=== PATIENT | female | born 1945 | race Hispanic/Latino ===

== ENCOUNTER → 2018-02-24 | Outpatient (CLI) | payer OTHER ==
[~2018-02-24] MED LIST: ASPI-1197 PO; BENA5TAB3 PO; CARB15DR OD; CARV25TA PO; GLIP5TAB11 PO; PANT40TA25 PO; PRAV40TA3 PO; SIMV40TA5 PO; SPIR25TA4 PO
== END | disposition home or self-care (01) ==
LOC: SHCH 08:33
PROVIDERS: ATTEND Internal Medicine Cardiovascular Disease
DX: I08.1 Rheumatic disorders of both mitral and tricuspid valves (principal); I31.3 Pericardial effusion (noninflammatory); I13.0 Hypertensive heart and chronic kidney disease with heart failure and stage 1 through stage 4 chronic kidney disease, or unspecified chronic kidney disease; I50.9 Heart failure, unspecified; E11.22 Type 2 diabetes mellitus with diabetic chronic kidney disease; N18.3 Chronic kidney disease, stage 3 (moderate)
CPT/HCPCS: 93306

== ENCOUNTER 2018-03-13 13:37 | Emergency (ER) | payer OTHER ==
[~2018-03-13 13:37] MED LIST changes: -BENA5TAB3 PO; +BENA5TAB6 PO; -SIMV40TA5 PO; -SPIR25TA4 PO
[2018-03-13 14:37] LABS: BASOPHILS % (AUTO) 0.7 % (0.0-5.0); EOSINOPHILS % (AUTO) 6.3 % (0.0-8.0); HEMATOCRIT 40.9 % (36-48); LYMPHOCYTES % (AUTO) 14.3 % (21.0-51.0); MEAN CORPUSCULAR HEMOGLOBIN 29.2 pg (27.0-33.0); MEAN CORPUSCULAR VOLUME 83.5 fL (79-99); MONOCYTES % (AUTO) 5.7 % (3.0-13.0); PLATELET COUNT (AUTO) 262 K/uL (130-400); RED CELL DISTRIBUTION WIDTH 13.1 % (11.0-15.5)
[2018-03-13 14:48] LABS: INR 0.99 (0.85-1.15); PARTIAL THROMBOPLASTIN TIME 25.5 SEC (26.3-35.5); PROTHROMBIN TIME 10.4 SEC (9.6-11.6)
[2018-03-13 14:49] LABS: CREATININE 1.4 mg/dL (0.5-1.5); POTASSIUM 4.6 mmol/L (3.5-5.1)
[2018-03-13 14:54] LABS: APPEARANCE,URINE Clear (CLEAR); BILIRUBIN,URINE Negative (NEGATIVE); COLOR,URINE Yellow (YELLOW); GLUCOSE, URINE (UA) Negative (NEGATIVE); KETONES,URINE Negative (NEGATIVE); LEUKOCYTE ESTERASE ,URINE Negative (NEGATIVE); NITRATE,URINE Negative (NEGATIVE); OCCULT BLOOD,URINE Negative (NEGATIVE); PH,URINE 6.5 (5.0-8.0); PROTEIN,URINE Negative (NEGATIVE); UROBILINOGEN,URINE 0.2 mg/dL (0.2-1.0)
[2018-03-13 15:02] LABS: ALBUMIN 4.1 g/dL (3.5-5.0); BILIRUBIN,TOTAL 0.6 mg/dL (0.2-1.0); CREATINE KINASE MB 1.4 ng/mL (0.5-3.6); TOTAL PROTEIN, SERUM 8.4 g/dL (6.0-8.3)
[2018-03-13 15:05] LABS: B-TYPE NATRIURETIC PEPTIDE 175 pg/mL (0-100)
[2018-03-13] MEDS ORDERED: AZITHROMYCIN 250 MG TABLET PO ONE (15:20)
[2018-03-13] MEDS ORDERED: IPRATROPIUM/ALBUTEROL SULFATE 3 ML SOLUTION IH ONE (15:28)
[2018-04-07] MEDS ORDERED: SIMV40TA5 PO (13:50)
[2018-04-07] MEDS ORDERED: SPIR25TA6 PO (13:50)
== END 2018-03-13 16:20 | disposition home or self-care (01) ==
LOC: EDH 13:37
DX: J45.909 Unspecified asthma, uncomplicated (principal); E11.9 Type 2 diabetes mellitus without complications; I11.0 Hypertensive heart disease with heart failure; I50.9 Heart failure, unspecified; Z95.0 Presence of cardiac pacemaker; Z88.1 Allergy status to other antibiotic agents; Z88.8 Allergy status to other drugs, medicaments and biological substances
CPT/HCPCS: 36415; 71045; 80053; 81003; 82553; 83880; 84484; 85025; 85610; 85730; 93005; 94640

== ENCOUNTER 2018-04-09 06:49 | Day surgery (SDC) | payer OTHER ==
[~2018-04-09] VITALS: Ht 157.5 cm; Wt 61.8 kg
[~2018-04-09 06:49] MED LIST changes: -CARB15DR OD; -PRAV40TA3 PO; +SIMV40TA5 PO; +SODIUM CHLORIDE 0.9% 1000ML 1,000 ML IV ONE; +SPIR25TA6 PO
[2018-04-09 07:07] VITALS: BP 109/58
[2018-04-09] MEDS ORDERED: PROPOFOL 10 MG/ML 20ML VIAL IV ONE (08:14)
[2018-04-09] MEDS ORDERED: PHENYLEPHRINE HCL 10 MG/ML 1ML VIAL IV ONE (08:22)
[2018-04-09 08:41] VITALS: BP 108/48
== END 2018-04-09 09:16 | disposition home or self-care (01) ==
LOC: ENDO 06:49 → DAH 06:49 → ENDO 09:16
PROVIDERS: ATTEND Internal Medicine
DX: D12.3 Benign neoplasm of transverse colon (principal); K63.5 Polyp of colon; D12.4 Benign neoplasm of descending colon; D12.5 Benign neoplasm of sigmoid colon; I25.10 Atherosclerotic heart disease of native coronary artery without angina pectoris; E11.9 Type 2 diabetes mellitus without complications; K29.50 Unspecified chronic gastritis without bleeding; K31.7 Polyp of stomach and duodenum; K57.30 Diverticulosis of large intestine without perforation or abscess without bleeding; K64.0 First degree hemorrhoids; K63.89 Other specified diseases of intestine; I11.0 Hypertensive heart disease with heart failure; I50.20 Unspecified systolic (congestive) heart failure; K21.9 Gastro-esophageal reflux disease without esophagitis; K22.70 Barrett's esophagus without dysplasia
CPT/HCPCS: 43239; 43251; 45380; 45385; 82948 ×2; 88305; 88312; 93005; A4606; J2370; J2704; J7030

== ENCOUNTER → 2019-02-18 | Outpatient (CLI) | payer OTHER ==
[~2019-02-18] MED LIST changes: -SODIUM CHLORIDE 0.9% 1000ML 1,000 ML IV ONE
== END | disposition home or self-care (01) ==
LOC: SHCH 13:14
PROVIDERS: ATTEND Internal Medicine Cardiovascular Disease
DX: I34.0 Nonrheumatic mitral (valve) insufficiency (principal); I31.3 Pericardial effusion (noninflammatory); I10 Essential (primary) hypertension
CPT/HCPCS: 93306

== ENCOUNTER → 2019-08-21 | Outpatient (CLI) | payer OTHER | END | disposition home or self-care (01) | LOC: RAH 15:20 | PROVIDERS: ATTEND Internal Medicine Cardiovascular Disease | DX: I34.0 Nonrheumatic mitral (valve) insufficiency (principal); R42 Dizziness and giddiness; W19.XXXD Unspecified fall, subsequent encounter | CPT/HCPCS: 70450 ==

== ENCOUNTER 2020-01-21 18:33 | Emergency (ER) | payer OTHER ==
[~2020-01-21 18:33] MED LIST changes: +SIMV-46 PO; -SIMV40TA5 PO
[2020-01-21] MEDS ORDERED: ASPIRIN 325MG EC TAB 325 MG TABLET.DR PO ONE (18:53)
[2020-01-21] MEDS ORDERED: ASPIRIN 325 MG TABLET ONE (19:15)
[2020-01-21] MEDS ORDERED: DIAZEPAM 5 MG TABLET ONE (19:16)
[2020-01-21 19:18] LABS: BASOPHILS % (AUTO) 0.6 % (0.0-5.0); EOSINOPHILS % (AUTO) 7.7 % (0.0-8.0); HEMATOCRIT 41.5 % (36-48); LYMPHOCYTES % (AUTO) 11.1 % (21.0-51.0); MEAN CORPUSCULAR HEMOGLOBIN 28.2 pg (27.0-33.0); MEAN CORPUSCULAR HGB CONC 32.5 g/dL (32.0-36.0); MEAN CORPUSCULAR VOLUME 86.6 fL (79-99); MONOCYTES % (AUTO) 6.2 % (3.0-13.0); NEUTROPHILS % (AUTO) 74.1 % (40.0-77.0); PLATELET COUNT (AUTO) 223 K/uL (130-400); RED BLOOD CELL COUNT(AUTO) 4.79 MIL/uL (4.00-5.50); RED CELL DISTRIBUTION WIDTH 12.6 % (11.0-15.5); WHITE BLOOD COUNT (AUTO) 14.3 K/uL (4.8-10.8)
[2020-01-21 19:20] LABS: CREATININE 1.1 mg/dL (0.5-1.5); POTASSIUM 3.8 mmol/L (3.5-5.1)
[2020-01-21 19:26] LABS: BILIRUBIN,TOTAL 0.4 mg/dL (0.2-1.0)
[2020-01-21 19:29] LABS: INR 0.99 (0.85-1.15); PARTIAL THROMBOPLASTIN TIME 25.2 SEC (26.3-35.5); PROTHROMBIN TIME 10.4 SEC (9.6-11.6)
[2020-01-21] MEDS ORDERED: FENTANYL CITRATE PF 50 MCG/1 ML 2ML VIAL ONE (20:51)
== END 2020-01-21 23:01 | disposition home or self-care (01) ==
LOC: EDH 18:33
DX: S16.1XXA Strain of muscle, fascia and tendon at neck level, initial encounter (principal); E11.9 Type 2 diabetes mellitus without complications; I10 Essential (primary) hypertension; I50.9 Heart failure, unspecified; Z90.710 Acquired absence of both cervix and uterus; Z90.49 Acquired absence of other specified parts of digestive tract; Z88.2 Allergy status to sulfonamides; Z88.1 Allergy status to other antibiotic agents; X58.XXXA Exposure to other specified factors, initial encounter; Y93.89 Activity, other specified; Y92.098 Other place in other non-institutional residence as the place of occurrence of the external cause; Y99.8 Other external cause status
CPT/HCPCS: 36415; 71045; 72125; 80053; 82550; 84484 ×2; 85025; 85610; 85730; 93005 ×2; 96374; 99285; J3010

== ENCOUNTER → 2020-05-24 | Outpatient (CLI) | payer OTHER | END | disposition home or self-care (01) | LOC: SHCH 11:28 | PROVIDERS: ATTEND Internal Medicine Cardiovascular Disease | DX: I34.0 Nonrheumatic mitral (valve) insufficiency (principal) | CPT/HCPCS: 93306 ==

== ENCOUNTER → 2021-05-26 | Outpatient (CLI) | payer OTHER ==
[~2021-05-26] MED LIST changes: -PANT40TA25 PO; +PANT40TA54 PO
== END | disposition home or self-care (01) ==
LOC: SHCH 08:48
PROVIDERS: ATTEND Internal Medicine Cardiovascular Disease
DX: I08.8 Other rheumatic multiple valve diseases (principal); I42.0 Dilated cardiomyopathy; R55 Syncope and collapse; Z95.0 Presence of cardiac pacemaker
CPT/HCPCS: 93306; 93356

== ENCOUNTER → 2022-05-04 | Outpatient (CLI) | payer OTHER ==
[~2022-05-04] MED LIST changes: +BENA5TAB40 PO; -BENA5TAB6 PO
== END | disposition home or self-care (01) ==
LOC: SHCH 08:54
PROVIDERS: ATTEND Internal Medicine Cardiovascular Disease
DX: I27.20 Pulmonary hypertension, unspecified (principal); I34.0 Nonrheumatic mitral (valve) insufficiency; I08.1 Rheumatic disorders of both mitral and tricuspid valves; I11.9 Hypertensive heart disease without heart failure
CPT/HCPCS: 93306

== ENCOUNTER → 2022-11-20 | Outpatient (CLI) | payer OTHER | END | disposition home or self-care (01) | LOC: SHCH 13:29 | PROVIDERS: ATTEND Internal Medicine Cardiovascular Disease | DX: R09.89 Other specified symptoms and signs involving the circulatory and respiratory systems (principal); I73.9 Peripheral vascular disease, unspecified; F50.89 Other specified eating disorder | CPT/HCPCS: 93880; 93925 ==

== ENCOUNTER → 2022-12-27 | Outpatient (CLI) | payer OTHER ==
[~2022-12-27] MED LIST changes: +IOHEXOL 350 MG/ML 100ML INFUS..BTL IV ONE
== END | disposition home or self-care (01) ==
LOC: RAH 08:39
PROVIDERS: ATTEND Internal Medicine Cardiovascular Disease
DX: R09.89 Other specified symptoms and signs involving the circulatory and respiratory systems (principal); I25.10 Atherosclerotic heart disease of native coronary artery without angina pectoris
CPT/HCPCS: 70498; Q9967

== ENCOUNTER → 2022-12-28 | Outpatient (CLI) | payer OTHER ==
[~2022-12-28] MED LIST changes: -IOHEXOL 350 MG/ML 100ML INFUS..BTL IV ONE; +REGADENOSON 0.4 MG/5 ML PF SYG IVP SCH
== END | disposition home or self-care (01) ==
LOC: SHCH 08:16
PROVIDERS: ATTEND Internal Medicine Cardiovascular Disease
DX: I42.0 Dilated cardiomyopathy (principal); I25.10 Atherosclerotic heart disease of native coronary artery without angina pectoris; I51.7 Cardiomegaly; Z95.810 Presence of automatic (implantable) cardiac defibrillator; Z79.899 Other long term (current) drug therapy
CPT/HCPCS: 78452; 96374; 93017; J2785; A9500 ×2

== ENCOUNTER → 2023-01-31 | Outpatient (CLI) | payer OTHER ==
[~2023-01-31] MED LIST changes: -REGADENOSON 0.4 MG/5 ML PF SYG IVP SCH
== END | disposition home or self-care (01) ==
LOC: RAH 12:49
PROVIDERS: ATTEND Family Medicine
DX: M48.061 Spinal stenosis, lumbar region without neurogenic claudication (principal); M47.816 Spondylosis without myelopathy or radiculopathy, lumbar region; M51.36 Other intervertebral disc degeneration, lumbar region; M54.42 Lumbago with sciatica, left side
CPT/HCPCS: 72131

== ENCOUNTER → 2023-04-05 | Outpatient (CLI) | payer OTHER ==
[~2023-04-05] MED LIST changes: +AMIO200T68 PO; +AMOX-426 PO; +APIX2.5T PO; +FURO20TA4 PO; +SODI650T PO; -SPIR25TA6 PO; +ZOLP5TAB8 PO
[2023-04-05 15:20] LABS: BASOPHILS % (AUTO) 0.3 % (0.0-5.0); EOSINOPHILS % (AUTO) 1.6 % (0.0-8.0); LYMPHOCYTES % (AUTO) 9.2 % (21.0-51.0); MEAN CORPUSCULAR HEMOGLOBIN 28.8 pg (27.0-33.0); MEAN CORPUSCULAR HGB CONC 31.5 g/dL (32.0-36.0); MEAN CORPUSCULAR VOLUME 91.4 fL (79-99); MONOCYTES % (AUTO) 6.3 % (3.0-13.0); NEUTROPHILS % (AUTO) 82.2 % (40.0-77.0); PLATELET COUNT (AUTO) 196 K/uL (130-400); RED BLOOD CELL COUNT(AUTO) 3.61 MIL/uL (4.00-5.50); RED CELL DISTRIBUTION WIDTH 13.2 % (11.0-15.5); WHITE BLOOD COUNT (AUTO) 11.8 K/uL (4.8-10.8)
[2023-04-05 15:57] LABS: ALBUMIN 3.6 g/dL (3.5-5.0); CREATININE 1.6 mg/dL (0.5-1.5); POTASSIUM 4.5 mmol/L (3.5-5.1); TOTAL PROTEIN, SERUM 6.5 g/dL (6.0-8.3)
== END | disposition home or self-care (01) ==
LOC: LAB 14:26
PROVIDERS: ATTEND Physician Assistant
DX: E78.5 Hyperlipidemia, unspecified (principal)
CPT/HCPCS: 36415; 80053; 85025

== ENCOUNTER → 2023-06-21 | Outpatient (CLI) | payer OTHER ==
[~2023-06-21] MED LIST changes: -AMIO200T68 PO; -AMOX-426 PO; +METO-296 PO; +SENN1TAB72 PO
[2023-06-21 15:35] LABS: ALBUMIN 3.4 g/dL (3.5-5.0); CREATININE 1.1 mg/dL (0.5-1.5); MAGNESIUM 1.8 mg/dL (1.80-2.40); POTASSIUM 3.8 mmol/L (3.5-5.1); TOTAL PROTEIN, SERUM 6.7 g/dL (6.0-8.3)
== END | disposition home or self-care (01) ==
LOC: LAB 14:00
PROVIDERS: ATTEND Physician Assistant
DX: E78.5 Hyperlipidemia, unspecified (principal)
CPT/HCPCS: 36415; 80053; 83735; 83880

== ENCOUNTER → 2023-06-27 | Outpatient (CLI) | payer OTHER | END | disposition home or self-care (01) | LOC: SHCH 12:58 | PROVIDERS: ATTEND Internal Medicine Cardiovascular Disease | DX: I65.23 Occlusion and stenosis of bilateral carotid arteries (principal); R09.89 Other specified symptoms and signs involving the circulatory and respiratory systems; I42.0 Dilated cardiomyopathy | CPT/HCPCS: 93880 ==

== ENCOUNTER → 2023-07-15 | Outpatient (CLI) | payer OTHER ==
[2023-07-15 12:48] LABS: CREATININE 1.2 mg/dL (0.5-1.5); POTASSIUM 4.1 mmol/L (3.5-5.1)
== END | disposition home or self-care (01) ==
LOC: LAB 07-04 09:55
PROVIDERS: ATTEND Internal Medicine Cardiovascular Disease
DX: I42.0 Dilated cardiomyopathy (principal); E78.5 Hyperlipidemia, unspecified
CPT/HCPCS: 36415; 80048; 83735; 83880

== ENCOUNTER → 2024-02-01 | Outpatient (CLI) | payer OTHER ==
[~2024-02-01] MED LIST changes: -GLIP5TAB11 PO; +GLIP5TAB15 PO
== END | disposition home or self-care (01) ==
LOC: SHCH 09:19
PROVIDERS: ATTEND Internal Medicine Cardiovascular Disease
DX: I48.0 Paroxysmal atrial fibrillation (principal); I73.9 Peripheral vascular disease, unspecified
CPT/HCPCS: 93925

== ENCOUNTER → 2024-05-05 | Outpatient (CLI) | payer OTHER ==
[~2024-05-05] MED LIST changes: +AEC81 PO; -ASPI-1197 PO; -BENA5TAB40 PO; +DRON400T7 PO; +LINA145C PO; +LOSA50TA64 PO; +PANT40TA PO; -PANT40TA54 PO; +POLY17PO4 PO; -SENN1TAB72 PO; +SIMV-43 PO; -SIMV-46 PO; -SODI650T PO; -ZOLP5TAB8 PO
[2024-05-05 16:23] LABS: BASOPHILS # (AUTO) 0.06 K/uL (0.00-0.20); BASOPHILS % (AUTO) 0.5 % (0.0-5.0); EOSINOPHILS # (AUTO) 2.17 K/uL (0.00-0.70); EOSINOPHILS % (AUTO) 17.4 % (0.0-8.0); HEMATOCRIT 31.2 % (36-48); IMMATURE GRANULOCYTE ABSOLUTE 0.06 K/uL (0-1); LYMPHOCYTES # (AUTO) 1.5 K/uL (1.0-4.8); LYMPHOCYTES % (AUTO) 12.1 % (21.0-51.0); MEAN CORPUSCULAR HEMOGLOBIN 29.3 pg (27.0-33.0); MEAN CORPUSCULAR HGB CONC 32.7 g/dL (32.0-36.0); MEAN CORPUSCULAR VOLUME 89.7 fL (79-99); MONOCYTES # (AUTO) 1.1 K/uL (0.1-1.0); MONOCYTES % (AUTO) 8.4 % (3.0-13.0); NEUTROPHILS # (AUTO) 7.6 K/uL (1.8-7.7); NEUTROPHILS % (AUTO) 61.1 % (40.0-77.0); PLATELET COUNT (AUTO) 240 K/uL (130-400); RED BLOOD CELL COUNT(AUTO) 3.48 MIL/uL (4.00-5.50); RED CELL DISTRIBUTION WIDTH 12.9 % (11.0-15.5); WHITE BLOOD COUNT (AUTO) 12.4 K/uL (4.8-10.8)
[2024-05-05 16:41] LABS: ALBUMIN 3.4 g/dL (3.5-5.0); BILIRUBIN,TOTAL 0.3 mg/dL (0.2-1.0); CREATININE 2.3 mg/dL (0.5-1.0); MAGNESIUM 2.2 mg/dL (1.80-2.40); POTASSIUM 4.6 mmol/L (3.5-5.1)
== END | disposition home or self-care (01) ==
LOC: LAB 15:47
PROVIDERS: ATTEND Internal Medicine Cardiovascular Disease
DX: I48.0 Paroxysmal atrial fibrillation (principal); E78.5 Hyperlipidemia, unspecified
CPT/HCPCS: 36415; 80053; 83735; 83880; 85025

== ENCOUNTER 2024-07-16 10:01 | Emergency (ER) | payer OTHER ==
[~2024-07-16] VITALS: Ht 154.9 cm; Wt 56.7 kg
[2024-07-16 11:21] LABS: BASOPHILS # (AUTO) 0.02 K/uL (0.00-0.20); BASOPHILS % (AUTO) 0.2 % (0.0-5.0); EOSINOPHILS # (AUTO) 0.85 K/uL (0.00-0.70); EOSINOPHILS % (AUTO) 7.3 % (0.0-8.0); HEMATOCRIT 34.6 % (36-48); IMMATURE GRANULOCYTE ABSOLUTE 0.06 K/uL (0-1); LYMPHOCYTES # (AUTO) 1.5 K/uL (1.0-4.8); MEAN CORPUSCULAR HEMOGLOBIN 28.9 pg (27.0-33.0); MEAN CORPUSCULAR HGB CONC 33.5 g/dL (32.0-36.0); MEAN CORPUSCULAR VOLUME 86.1 fL (79-99); MONOCYTES # (AUTO) 0.9 K/uL (0.1-1.0); MONOCYTES % (AUTO) 7.5 % (3.0-13.0); NEUTROPHILS # (AUTO) 8.3 K/uL (1.8-7.7); NEUTROPHILS % (AUTO) 71.5 % (40.0-77.0); PLATELET COUNT (AUTO) 265 K/uL (130-400); RED BLOOD CELL COUNT(AUTO) 4.02 MIL/uL (4.00-5.50); RED CELL DISTRIBUTION WIDTH 12.4 % (11.0-15.5); WHITE BLOOD COUNT (AUTO) 11.6 K/uL (4.8-10.8)
[2024-07-16 11:44] LABS: ALBUMIN 3.1 g/dL (3.5-5.0); BILIRUBIN,TOTAL 0.3 mg/dL (0.2-1.0); CREATININE 2.3 mg/dL (0.5-1.0); POTASSIUM 4.7 mmol/L (3.5-5.1); TOTAL PROTEIN, SERUM 6.8 g/dL (6.0-8.3)
[2024-07-16] MEDS: 0.9%NACL 1000ML 1,000 ML IV ONE ×2 (12:44→13:55)
[2024-07-16 15:01] VITALS: BP 113/37; PULSE 71; RESP 16; O2SAT 100
== END 2024-07-16 15:26 | disposition home or self-care (01) ==
LOC: EDH 10:01
DX: U09.9 Post COVID-19 condition, unspecified (principal); I13.0 Hypertensive heart and chronic kidney disease with heart failure and stage 1 through stage 4 chronic kidney disease, or unspecified chronic kidney disease; E11.22 Type 2 diabetes mellitus with diabetic chronic kidney disease; N18.9 Chronic kidney disease, unspecified; I50.9 Heart failure, unspecified; E78.00 Pure hypercholesterolemia, unspecified; E86.0 Dehydration; I48.91 Unspecified atrial fibrillation; Z79.82 Long term (current) use of aspirin; Z79.84 Long term (current) use of oral hypoglycemic drugs; Z79.899 Other long term (current) drug therapy; Z98.890 Other specified postprocedural states; Z90.710 Acquired absence of both cervix and uterus; Z95.810 Presence of automatic (implantable) cardiac defibrillator; Z90.49 Acquired absence of other specified parts of digestive tract; Z88.1 Allergy status to other antibiotic agents; Z88.2 Allergy status to sulfonamides; Z88.8 Allergy status to other drugs, medicaments and biological substances
CPT/HCPCS: 99285; 96360; 71045; 96361; 84484; 80053; 83880; 85025; 36415; 93005; J7030

== ENCOUNTER 2025-01-05 10:10 | Day surgery (SDC) | payer OTHER ==
[2025-01-01 09:48] LABS: BASOPHILS # (AUTO) 0.06 K/uL (0.00-0.20); BASOPHILS % (AUTO) 0.6 % (0.0-5.0); EOSINOPHILS # (AUTO) 1.31 K/uL (0.00-0.70); EOSINOPHILS % (AUTO) 13.2 % (0.0-8.0); HEMATOCRIT 34.7 % (36-48); IMMATURE GRANULOCYTE ABSOLUTE 0.03 K/uL (0-1); LYMPHOCYTES % (AUTO) 9.6 % (21.0-51.0); MEAN CORPUSCULAR HEMOGLOBIN 28.4 pg (27.0-33.0); MEAN CORPUSCULAR HGB CONC 31.7 g/dL (32.0-36.0); MEAN CORPUSCULAR VOLUME 89.7 fL (79-99); MONOCYTES # (AUTO) 0.7 K/uL (0.1-1.0); MONOCYTES % (AUTO) 7.3 % (3.0-13.0); NEUTROPHILS # (AUTO) 6.9 K/uL (1.8-7.7); PLATELET COUNT (AUTO) 243 K/uL (130-400); RED BLOOD CELL COUNT(AUTO) 3.87 MIL/uL (4.00-5.50); RED CELL DISTRIBUTION WIDTH 13.1 % (11.0-15.5); WHITE BLOOD COUNT (AUTO) 9.9 K/uL (4.8-10.8)
--- NOTE | 2025-01-01 09:52 | EKG ---
[facility] Test Date: 2025-01-01 Test Time: 10:34:18 Pat Name: JENNIFER SOSA Department: [facility] Room: Gender: F Vamp Presser: [id number] : 1945 Requested By: Philipp MONCADA Order Number: [id number] Reading MD: Juan Gastelum Measurements Intervals [place] Rate: 72 P: 69 NE: 188 QRS: 96 QRSD: 125 T: 102 QT: 450 QTc: 493 Interpretive Statements Atrial-sensed ventricular-paced rhythm Compared to ECG 07/16/2024 10:52:24 AV dual-paced complex(es) or rhythm no longer present Electronically Signed On 01-02-2025 17:14:40 CROP SUPERVISOR by Juan Gastelum Please click the below link to view image of tracing.
[2025-01-01 09:55] LABS: CREATININE 1.3 mg/dL (0.5-1.0); POTASSIUM 4.5 mmol/L (3.5-5.1)
[2025-01-01 10:00] LABS: INR 0.98 (0.85-1.15)
[2025-01-01 10:01] LABS: PARTIAL THROMBOPLASTIN TIME 25.6 SEC (26.3-35.5)
[2025-01-01 10:18] VITALS: BP 165/78; PULSE 77; RESP 18; TEMP 97.3
[2025-01-05] VITALS (8 sets, daily range): BP systolic 143–182; BP diastolic 56–67; PULSE 70–76; RESP 12–18; TEMP 98–98.8
[~2025-01-05] VITALS: Ht 154.9 cm; Wt 59.9 kg
[~2025-01-05 10:10] MED LIST changes: -AEC81 PO; +AMIO200T68 PO; -APIX2.5T PO; +APIX5TAB PO; +ASPI-1443 PO; -DRON400T7 PO; -LINA145C PO; -METO-296 PO; -PANT40TA PO; +PANT40TA54 PO; -POLY17PO4 PO; -SIMV-43 PO; +SIMV10TA97 PO
[2025-01-05] MEDS: 0.9%NACL 1000ML 1,000 ML IV SCH (13:23)
[2025-01-05] MEDS ORDERED: MEPERIDINE-PF 50 MG/ML SYG ONE ×2 (13:35→14:26)
[2025-01-05] MEDS ORDERED: LIDOCAINE HCL 1% MDV 50ML VIAL ONE (13:35)
[2025-01-05] MEDS ORDERED: MIDAZOLAM HCL 1 MG/ML 2ML VIAL ONE ×3 (13:36→14:26)
[2025-01-05] MEDS ORDERED: ceFAZolin SODIUM 1 GM VIAL ONE (13:36)
[2025-01-05] MEDS ORDERED: BUPIvacaine/PF 0.25% 30ML VIAL IJ ONE (13:36)
[2025-01-05] MEDS ORDERED: ondanSETRON 4MG INJ IV PRN (15:30)
[2025-01-05] MEDS ORDERED: acetaMINOPHEN WITH coDEINE 1 TAB TAB PO PRN ×2 (15:30)
--- NOTE | 2025-01-05 15:45 | NUR ---
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 PATIENT DROWSY, RESPONDS TO VERBAL COMMANDS. PRESSURE DRESSING TO LEFT UPPER CHEST DRY AND INTACT. SURROUNDING AREA SOFT, NON-TENDER. NO BLEEDING/OOZING NOTED AROUND SITE. ICE PACK APPLIED PER MD ORDER. WILL CONTINUE TO MONITOR. CALL SCHULTE WITHIN REACH, PATIENT AND FAMILY INSTRUCTED TO CALL FOR ASSISTANCE.
--- NOTE | 2025-01-05 18:00 | NUR ---
PRESSURE DRESSING TO LEFT UPPER CHEST REMOVED AT THIS TIME. PATIENT TOLERATED WELL. UNDERLYING DRESSING DRY AND INTACT, NO BLEEDING/OOZING NOTED. SURROUNDING AREA SOFT, NON-TENDER. PATIENT AND FAMILY INSTRUCTED TO LEAVE DRESSING INTACT UNTIL FOLLOW UP APPOINTMENT WITH DR. MONCADA. EDUCATED ON SIGNS AND SYMPTOMS TO REPORT TO DR. MONCADA (BLEEDING, FEVER/CHILLS, FOUL-SMELLING OR PURULENT DRAINAGE TO INCISION SITE). PATIENT AND FAMILY AT BEDSIDE VERBALIZED UNDERSTANDING.
[2025-01-05] MEDS: ceFAZolin SODIUM 1 GM VIAL IVPB ONE (18:01)
== END 2025-01-05 18:30 | disposition home or self-care (01) ==
LOC: DAH 10:10
PROVIDERS: ATTEND Internal Medicine Cardiovascular Disease
DX: Z45.02 Encounter for adjustment and management of automatic implantable cardiac defibrillator (principal); I48.0 Paroxysmal atrial fibrillation; I25.5 Ischemic cardiomyopathy; I25.10 Atherosclerotic heart disease of native coronary artery without angina pectoris; I13.0 Hypertensive heart and chronic kidney disease with heart failure and stage 1 through stage 4 chronic kidney disease, or unspecified chronic kidney disease; I42.8 Other cardiomyopathies; N18.30 Chronic kidney disease, stage 3 unspecified; I50.30 Unspecified diastolic (congestive) heart failure; E78.5 Hyperlipidemia, unspecified; I65.29 Occlusion and stenosis of unspecified carotid artery; I73.9 Peripheral vascular disease, unspecified; E87.5 Hyperkalemia; E66.9 Obesity, unspecified; K21.9 Gastro-esophageal reflux disease without esophagitis; F41.9 Anxiety disorder, unspecified; Z79.899 Other long term (current) drug therapy; Z95.810 Presence of automatic (implantable) cardiac defibrillator; Z79.82 Long term (current) use of aspirin; Z68.25 Body mass index [BMI] 25.0-25.9, adult; Z90.49 Acquired absence of other specified parts of digestive tract; Z98.890 Other specified postprocedural states
CPT/HCPCS: 80048; 85025; 85610; 85730; 36415; 93005; 33264; 82948; A4223 ×3; C1882; J0690 ×2; J0665; J2250 ×3; J2175 ×2; J3490; A4215; A4222; A4221; A4663; A4216; A4606; 99156; 99157

== ENCOUNTER 2025-04-05 12:48 | Observation (INO) | payer OTHER ==
[~2025-04-05] VITALS: Ht 154.9 cm; Wt 55.6 kg
--- NOTE | 2025-04-05 13:08 | EKG ---
[facility] Test Date: 2025-04-05 Test Time: 12:53:49 Pat Name: JENNIFER SOSA Department: ED Room: Gender: F Special Investigator: [id number] : 1945 Requested By: KALEIGH CONNELLY Order Number: [id number] Reading MD: Fareed Montez Measurements Intervals [place] Rate: 78 P: 69 MO: 252 QRS: -87 QRSD: 144 T: 102 QT: 455 QTc: 520 Interpretive Statements Atrial-sensed ventricular-paced complexes Compared to ECG 01/01/2025 10:34:18 No significant changes Electronically Signed On 04-05-2025 14:18:53 CDT by Fareed Montez Please click the below link to view image of tracing.
[2025-04-05 13:27] LABS: BASOPHILS # (AUTO) 0.05 K/uL (0.00-0.20); BASOPHILS % (AUTO) 0.3 % (0.0-5.0); EOSINOPHILS # (AUTO) 0.06 K/uL (0.00-0.70); EOSINOPHILS % (AUTO) 0.4 % (0.0-8.0); IMMATURE GRANULOCYTE ABSOLUTE 0.07 K/uL (0-1); LYMPHOCYTES # (AUTO) 0.8 K/uL (1.0-4.8); LYMPHOCYTES % (AUTO) 5.3 % (21.0-51.0); MEAN CORPUSCULAR HGB CONC 31.9 g/dL (32.0-36.0); MEAN CORPUSCULAR VOLUME 87.6 fL (79-99); MONOCYTES # (AUTO) 0.7 K/uL (0.1-1.0); MONOCYTES % (AUTO) 4.9 % (3.0-13.0); NEUTROPHILS # (AUTO) 13.3 K/uL (1.8-7.7); NEUTROPHILS % (AUTO) 88.6 % (40.0-77.0); PLATELET COUNT (AUTO) 212 K/uL (130-400); RED BLOOD CELL COUNT(AUTO) 4.11 MIL/uL (4.00-5.50); RED CELL DISTRIBUTION WIDTH 15.1 % (11.0-15.5)
[2025-04-05 13:39] LABS: ALBUMIN 3.3 g/dL (3.5-5.0); BILIRUBIN,DIRECT 0.2 mg/dL (0.0-0.3); BILIRUBIN,TOTAL 0.6 mg/dL (0.2-1.0); CREATININE 1.2 mg/dL (0.5-1.0); POTASSIUM 4.4 mmol/L (3.5-5.1); TOTAL PROTEIN, SERUM 6.9 g/dL (6.0-8.3)
[2025-04-05 13:44] LABS: B-TYPE NATRIURETIC PEPTIDE 1330 pg/mL (0-100)
--- NOTE | 2025-04-05 13:54 | HMCIMG ---
CT ABDOMEN WITHOUT CONTRAST Clinical Information: constipation vs obstruction, dyspnea Comparison: CT Dose Index (CTDI): mGy Dose Length Product (DLP): total mGy-cm PROTOCOL: Routine noncontrast helical scanning of the abdomen was performed at 5mm collimation. Findings: No evidence of nephro or ureterolithiasis is found. No hydronephrosis or ureteral dilatation is seen. Bilateral small pleural effusions. Moderate pericardial effusion. Cardiomegaly. The stomach is unremarkable. It shows no wall thickening. No gross ulceration is seen. It is not overly distended. There are no surrounding inflammatory changes. No wall lesions are identified to suggest cancer. The spleen is unremarkable. It is not enlarged. The pancreas shows normal anatomy. It is not fatty replaced. It shows no lesions. The pancreatic duct is not dilated. The gallbladder is surgically absent. Atheromatous plaque of the aorta is seen. The adrenal glands are unremarkable. There is no enlargement. No lesions are noted. The liver is unremarkable. It shows no focal masses. The visualized segments of large and small bowel appear unremarkable. The bony and vascular structures are unremarkable for the patient's age. IMPRESSION: Bilateral small pleural effusions. Pericardial effusion. No acute abdominal pathology. This study was performed using dose reduction techniques to include automated exposure control and/or adjustment of the mA and/or kV according to patient size.
--- NOTE | 2025-04-05 14:02 | HMCIMG ---
Exam Type: CHEST 1VW Clinical Information: chest pain Comparison: None Findings: Left cardiac pacemaker is noted with leads in place. There is cardiomegaly. There is prominence of the vascular markings consistent with pulmonary venous congestion. IMPRESSION: Findings consistent with pulmonary venous congestion.
[2025-04-05] MEDS: PEG 3350/NA SULF,BICARB,CL/KCL 4000 ML SOLN PO ONE (14:12)
[2025-04-05] MEDS: LACTATED RINGERS 500 ML 500 ML IV ONE (14:12)
[2025-04-05] MEDS: furoSEMIDE 40MG VIAL ONE (14:13)
[2025-04-05] MEDS: furoSEMIDE 40MG VIAL IV ONE (14:13)
--- NOTE | 2025-04-05 14:15 | ERN ---
General Chief Complaint: Shortness of Breath Stated Complaint: SOB Time Seen by MD: 12:49 History of Present Illness Initial Comments 80-year-old female presents for abdominal pain respiratory distress dyspnea and inability to lie flat. Patient reports that over the last couple of days she was increasingly short of breath and he was in the abdominal distention/discomfort. No vomiting or diarrhea. No fevers. No cough. She reports she has been fluid overloaded in the past, and she usually she was up in her legs but currently she was not. She does take a diuretic. She reports that she has not been able to stool for the last day or two he was bloated in the abdomen. She has been able to pass gas. Allergies: Coded Allergies: nitrofurantoin (Unverified Allergy, Unknown, 04/07/18) sacubitril (Unverified Allergy, Unknown, 01/01/25) sulfamethoxazole (Verified Allergy, Unknown, 04/07/18) trimethoprim (Verified Allergy, Unknown, 04/07/18) valsartan (Unverified Allergy, Unknown, 01/01/25) Home Meds Reported Medications Simvastatin (Simvastatin) 10 Mg Tablet, 10 MG PO HS, TAB 01/01/25 Aspirin (Aspirin EC) 81 Mg Tablet.dr, 81 MG PO DAILY, TAB 01/01/25 Pantoprazole Sodium (Pantoprazole Sodium) 40 Mg Tablet.dr, 40 MG PO DAILY, TAB 01/01/25 Apixaban (Eliquis) 5 Mg Tablet, 5 MG PO BID, TAB RESUME ON 01/07/25 01/01/25 Amiodarone HCl (Amiodarone HCl) 200 Mg Tablet, 200 MG PO DAILY, TAB 01/01/25 Losartan Potassium (Losartan Potassium) 50 Mg Tablet, 50 MG PO HS, TAB 03/27/24 Glipizide (Glipizide) 5 Mg Tablet, 5 MG PO BID, TAB 03/27/24 Furosemide (Furosemide) 20 Mg Tablet, 1 TAB PO DAILY 03/30/23 Carvedilol (Carvedilol) 25 Mg Tablet, 25 MG PO BID, TAB 04/02/16 Past Medical History Past Medical History: Diabetes-Type II, High Cholesterol, Hypertension Medical History Other: 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 Social History Social History: Negative, Lives with family Female( History) History: Not Applicable ROS Dictation CONSTITUTIONAL: No chills, no fever, no weakness, no diaphoresis, no malaise. HEAD/FACE: No signs of trauma. EENT: No eye pain, no blurred vision, no tearing, no double vision, no ear pain, no ear discharge, no nose pain, no nasal congestion, no throat pain, no throat swelling, no mouth pain. RESPIRATORY: No cough, no orthopnea, no SOB, no stridor, no wheezing. CARDIOVASCULAR: Dyspnea GASTROINTESTINAL/ABDOMINAL: Abdominal discomfort distention GENITOURINARY: No abnormal discharge, no dysuria, no frequent urination, no hematuria. No complaints of pain in the genitals. MUSCULOSKELETAL: No back pain, no gout, no joint pain, no joint swelling, no muscle pain, no muscle stiffness, no neck pain. INTEGUMENTARY: No change in color, no change in hair/nails, no dryness, no lesion, no lumps, no rash. NEUROLOGICAL/PSYCH: No anxiety, not depressed, no emotional problem, no headache, no numbness, no pre-existing deficit, no history of seizures, no tremors, no weakness. HEMATOLOGIC/LYMPHATIC: Not anemic, no history of blood clots, no apparent bleeding, no bruising, glands not swollen. All Systems Negative, Except as Noted. Physical Exam Physical Exam Dictation VITAL SIGNS: Reviewed. GENERAL APPEARANCE: Alert, oriented x3, no acute distress HEAD AND FACE: Non-traumatic. EYES: PERRL, pink conjunctivas, eyelid no trauma, anterior chamber clear. EARS: Pinnas intact and no signs of trauma or erythema. Ear canals clear and no discharge. TMs no erythema. NOSE: No discharge, no bleeding. OROPHARYNX: Mouth normal, teeth no caries, tongue pink. Pharynx clear, no erythema. Tonsils no exudates, no abscesses noted. Mucous membrane moist. NECK: Supple, non-tender, no thyromegaly, no masses, no JVD, no bruits. BREAST: Deferred. CHEST: No tenderness, no crepitus, no paradoxical movement, no retractions. LUNGS: Clear, well-ventilated, symmetric, no rales, no wheezing, no rhonchi, no stridor, good breath sounds bilaterally. Crackles of the bases HEART: Regular rate, regular rhythm, no murmur, no gallops. VASCULAR: No peripheral edema. ABDOMEN: Soft, positive bowel sounds, nondistended, no guarding, nontender, no rebound, no masses no hepatomegaly, no splenomegaly, no Lui's sign, no hernias. RECTAL: Deferred. GENITAL: Deferred. NEUROLOGICAL: Normal speech, gross motor function intact, gross sensory function intact. MUSCULOSKELETAL: Neck nontender, full range of motion, back nontender, full range of motion. EXTREMITIES: Nontender, full range of motion. SKIN: Color pink, dry, no turgor, no rash, no lacerations, no abrasions, no contusions. LYMPHATICS: Deferred. Results Laboratory and Microbiology Lab and Micro Result Laboratory Tests Test 04/05/25 13:14 White Blood Count 15.0 K/uL (4.8-10.8) H Red Blood Count 4.11 MIL/uL (4.00-5.50) Hemoglobin 11.5 g/dL (12.0-16.0) L Hematocrit 36.0 % (36-48) Mean Corpuscular Volume 87.6 fL (79-99) Mean Corpuscular Hemoglobin 28.0 pg (27.0-33.0) Mean Corpuscular Hemoglobin Concent 31.9 g/dL (32.0-36.0) L Red Cell Distribution Width 15.1 % (11.0-15.5) Platelet Count 212 K/uL (130-400) Mean Platelet Volume 9.9 fL (7.5-10.5) Immature Granulocyte % (Auto) 0.5 % (0-1) Neutrophils (%) (Auto) 88.6 % (40.0-77.0) H Lymphocytes (%) (Auto) 5.3 % (21.0-51.0) L Monocytes (%) (Auto) 4.9 % (3.0-13.0) Eosinophils (%) (Auto) 0.4 % (0.0-8.0) Basophils (%) (Auto) 0.3 % (0.0-5.0) Neutrophils # (Auto) 13.3 K/uL (1.8-7.7) H Lymphocytes # (Auto) 0.8 K/uL (1.0-4.8) L Monocytes # (Auto) 0.7 K/uL (0.1-1.0) Eosinophils # (Auto) 0.06 K/uL (0.00-0.70) Basophils # (Auto) 0.05 K/uL (0.00-0.20) Absolute Immature Granulocyte (auto 0.07 K/uL (0-1) Nucleated Red Blood Cells 0.0 % (0.0-0.19) Sodium Level 136 mmol/L (136-145) Potassium Level 4.4 mmol/L (3.5-5.1) Chloride Level 103 mmol/L (101-111) Carbon Dioxide Level 28 mmol/L (21-32) Blood Urea Nitrogen 14 mg/dL (7-18) Creatinine 1.2 mg/dL (0.5-1.0) H Glomerular Filtration Rate Calc 45 mL/min (>90) Random Glucose 110 mg/dL (70-105) H Total Calcium 8.8 mg/dL (8.5-10.1) Total Bilirubin 0.6 mg/dL (0.2-1.0) Direct Bilirubin 0.2 mg/dL (0.0-0.3) Aspartate Amino Transf (AST/SGOT) 29 U/L (10-37) Alanine Aminotransferase (ALT/SGPT) 34 U/L (12-78) Alkaline Phosphatase 89 U/L (50-136) Total Creatine Kinase 50 U/L (21-232) Troponin I High Sensitivity 21 ng/L (4-50) B-Type Natriuretic Peptide 1330 pg/mL (0-100) H Total Protein 6.9 g/dL (6.0-8.3) Albumin 3.3 g/dL (3.5-5.0) L Lipase 47 U/L (16-77) MDM CC: Dyspnea, PND, abdominal pain with bloating Historian: Patient Comorbidities: Diabetes type 2, dyslipidemia, hypertension, AICD Limitations by social determinants of health: None Differential diagnosis: GI pathology, fluid overload, ACS, other Vital signs: Afebrile, mild hypertension Clinical exam: Crackles at the bases, no pedal edema, abdomen soft nontender nondistended. EKG: Paced rhythm rate of 78 delayed R-wave progression no STEMI. Independently interpreted by me. Labs (independently ordered and interpreted by me ): CBC shows leukocytosis 15.7 K, no shift or bands. Chemistries unremarkable. Troponin is normal. BNP elevated. CXR ( independently ordered and interpreted by me ): Cardiomegaly, no pleural effusion, some vascular congestion consistent with fluid overload CT abdomen and pelvis shows no acute abnormalities Based on the patient presentation I suspect she was fluid overloaded. She does have some bilateral pleural effusion on the CT scan, difficulty lying flat. I suspect the abdominal discomfort is some fluid retention. We will give her some pegs and she feels backed up, but we will also give her Lasix. We will admit fo r fluid overload, or edema. Patient was agreeable to the plan. Consultation: Hospitalist for admission. ED Course Orders Procedure Category Date Status Time Cbc With Differential LAB 04/05/25 In Process 12:57 Troponin I High LAB 04/05/25 Complete Sensitivity 12:57 12 Lead Ekg Tracing- EKG 04/05/25 Resulted Technical 12:57 Creatine Kinase, Total LAB 04/05/25 Complete 12:57 Chest 1vw RAD 04/05/25 Resulted 12:57 Lipase LAB 04/05/25 Complete 12:57 Basic Metabolic Panel LAB 04/05/25 Complete 12:57 Hepatic Function Panel LAB 04/05/25 Complete 12:57 B-Type Natriuretic LAB 04/05/25 In Process Peptide 12:57 Ct Abdomen/Pelvis W/O CT 04/05/25 Resulted Contrast 13:03 Peg 3350/Na PHA 04/05/25 Complete Sulf,Bicarb,Cl/Kcl 14:00 Lactated Ringers 500 PHA 04/05/25 In Process Ml (Lactated Ringer 14:30 Furosemide 40mg Vial PHA 04/05/25 In Process (Lasix 40mg Vial) 14:30 Furosemide 40mg Vial PHA 04/05/25 Complete (Lasix 40mg Vial) 14:06 Current Medications Medications (Trade) Dose Ordered Sig/Karma Route PRN Reason Start Time Stop Time Status Last Admin Dose Admin Furosemide (LASix 40MG VIAL) 40 mg ONCE ONCE IV 04/05/25 14:30 04/05/25 14:31 Furosemide (LASix 40MG VIAL) 40 mg STK-MED ONCE .ROUTE 04/05/25 14:06 04/05/25 14:07 DC 04/05/25 14:13 Lactated Ringer's 500 ml @ 0 mls/hr ONCE ONCE IV 04/05/25 14:30 04/05/25 14:31 Polyethylene Glycol/ Electrolytes (Golytely/Colyte Soln) 30 ml ONCE ONCE PO 04/05/25 14:00 04/05/25 14:01 DC 04/05/25 14:12 Vital Signs Date Time Temp Pulse Resp B/P (MAP) Pulse Ox O2 Delivery O2 Flow Rate FiO2 04/05/25 13:20 74 18 134/52 96 Room Air* 0 21 04/05/25 12:49 99.9 77 18 154/63 97 Room Air 0 DX & DISP Disposition: Inpatient ([employer] [facility]) Departure Impression: Primary Impression: Fluid overload Additional Impressions: Acute exacerbation of CHF (congestive heart failure), Constipation Condition: Stable Referrals: NOHEMI WATERS MD (PCP) KALEIGH CONNELLY DO April 05, 2025 14:15
[2025-04-05] MEDS ORDERED: hydrALAZine 20MG/ML VIAL IV PRN (14:30)
[2025-04-05] MEDS ORDERED: PoTASSium chloRIDE 20MEQ/100ML 100 ML IV PRN (14:30)
[2025-04-05] MEDS ORDERED: ondanSETRON 4MG INJ IVP PRN (14:30)
[2025-04-05] MEDS ORDERED: DEXTROSE 50%-WATER 50 ML DISP.SYRIN IV PRN (14:30)
[2025-04-05] MEDS ORDERED: GLUCAGON 1MG KIT 1 MG ML IM PRN (14:30)
[2025-04-05] MEDS ORDERED: LACTULOSE 20 GM/30 ML UDCUP PO PRN (14:30)
[2025-04-05] MEDS ORDERED: PoTASSium chloRIDE 20MEQ ER 20 MEQ ERTAB PO PRN (14:30)
[2025-04-05] MEDS ORDERED: MAGNESIUM 2GM PREMIX 50ML 50 ML IV PRN (14:30)
[2025-04-05] MEDS ORDERED: acetaMINOPHEN 325 MG TAB PO PRN (14:30)
[2025-04-05] MEDS ORDERED: PoTASSium chl 10% ELIXIR 20MEQ 20 MEQ/15 ML UDCUP PO PRN (14:30)
[2025-04-05] MEDS: furoSEMIDE 40MG VIAL IV SCH (14:30)
--- NOTE | 2025-04-05 14:33 | NUR ---
STATES SHE DOES NOT HAVE HER MEDICINES AT THIS TIME BUT WILL HAVE HER DAUGHTER BRING THEM BY LATER
[2025-04-05] MEDS: INSULIN humuLIN R 100 UNIT/ML 3ML SQ SCH (16:30)
--- NOTE | 2025-04-05 18:36 | HP ---
[facility] HISTORY & PHYSICAL Date Patient Seen: April 05, 2025 Time of Visit: 18:30 Supervising Physician: Dr. German Swanson Primary Care Physician: Dr. Bales Outpatient Specialists: Dr. Isaac Inpatient Consults: [ ] PROBLEM LIST: Acute hypoxic respiratory failure, POA CHF in acute exacerbation, per last echo 06/2024, EF of 25-30%, grade 2 diastolic dysfunction, and severe global hypokinesis POA Acute kidney injury, POA Leukocytosis, POA DM type 2, POA Hyperlipidemia, POA History of pacemaker/AICD placement PLAN: Admit to medical-surgical floor VS per unit protocol Keep systolic blood pressure less than 160 P.r.n. hydralazine and labetalol Continue Lasix IV for now DuoNeb q.6 as needed for shortness of breaths Strict I&O Keep head of bed above 30 O2 therapy as needed Incentive spirometry We will start patient on empiric antibiotic given leukocytosis with moderate cough Bilateral SCDs CBC, CMP, magnesium level daily HPI: 80-year-old female with past medical history of congestive heart failure with estimated EF of 25-30%, status post pacemaker/AICD placement, hypertension, DM type 2, hyperlipidemia who presented to ED via private vehicle with complaint of shortness of breaths that started around midnight and found to have CHF in acute exacerbation, and acute hypoxic respiratory failure. Patient was seen and examined in ED with no relatives present at bedside. According to her she started to have symptoms of shortness of breaths around 12 midnight, worse with laying flat. There is also associated [id number] cough but denies any fever or back pain. Patient was then brought in by family for further medical evaluation. In ED stat chest x-ray was done and findings consistent with vascular congestion, CT of the abdomen was also done and showed bilateral pleural effusion. Initial CBC showed [place] [address], hemoglobin of 11.5, and hematocrit of 36. Her chemistry is significant for creatinine level of 1.2, BNP of 1330, with troponin level of 21. In ED patient was initiated on O2 therapy and was given IV dose of Lasix. At present patient is currently hemodynamically stable, on room air with appropriate oxygen saturation, not in acute respiratory distress. Patient denies any headache, chest pain, shortness of breath, fever, cough, abdominal pain, diarrhea, flu-like symptoms. Patient was previously vaccinated with COVID, and her flu shot is up-to-date. Denies any alcohol, smoking, or illicit drug use. PAST MEDICAL HX: see above PAST SURGICAL HX: noncontributory SOCIAL HISTORY: No tobacco, ETOH, or illicit drug use Coded Allergies: nitrofurantoin (Unverified Allergy, Unknown, 04/07/18) sacubitril (Unverified Allergy, Unknown, 01/01/25) sulfamethoxazole (Verified Allergy, Unknown, 04/07/18) trimethoprim (Verified Allergy, Unknown, 04/07/18) valsartan (Unverified Allergy, Unknown, 01/01/25) REVIEW OF SYSTEMS: 12 point ROS reviewed with patient. Pertinent positives mentioned above. Otherwise negative. PHYSICAL EXAM: GENERAL: alert, weak, awake oriented x 3 HEENT: EOMI, Sclera non icteric, moist mucosa NECK: Supple, no JVD, trachea midline LUNGS: Clear breath sounds bilaterally. No wheezes HEART: Regular rate and rhythm. Normal S1 and S2, without murmurs ABD: Abdomen soft, nontender. Bowel sounds present EXT: No clubbing cyanosis or edema NEURO: Alert and oriented to person, follows commands Vital Signs (last 8hr) Date Time Temp Pulse Resp B/P (MAP) Pulse Ox O2 Delivery O2 Flow Rate FiO2 04/05/25 15:00 99.0 76 18 144/71 97 Room Air* 0 21 04/05/25 14:30 99.0 72 18 128/56 96 Room Air* 0 21 04/05/25 13:20 74 18 134/52 96 Room Air* 0 21 04/05/25 12:49 99.9 77 18 154/63 97 Room Air 0 LABS: Hematology Labs: Test 04/05/25 13:14 Range/Units White Blood Count 15.0 H 4.8-10.8 K/uL Red Blood Count 4.11 4.00-5.50 MIL/uL Hemoglobin 11.5 L 12.0-16.0 g/dL Hematocrit 36.0 36-48 % Mean Corpuscular Volume 87.6 79-99 fL Mean Corpuscular Hemoglobin 28.0 27.0-33.0 pg Mean Corpuscular Hemoglobin Concent 31.9 L 32.0-36.0 g/dL Red Cell Distribution Width 15.1 11.0-15.5 % Platelet Count 212 130-400 K/uL Mean Platelet Volume 9.9 7.5-10.5 fL Immature Granulocyte % (Auto) 0.5 0-1 % Neutrophils (%) (Auto) 88.6 H 40.0-77.0 % Lymphocytes (%) (Auto) 5.3 L 21.0-51.0 % Monocytes (%) (Auto) 4.9 3.0-13.0 % Eosinophils (%) (Auto) 0.4 0.0-8.0 % Basophils (%) (Auto) 0.3 0.0-5.0 % Neutrophils # (Auto) 13.3 H 1.8-7.7 K/uL Lymphocytes # (Auto) 0.8 L 1.0-4.8 K/uL Monocytes # (Auto) 0.7 0.1-1.0 K/uL Eosinophils # (Auto) 0.06 0.00-0.70 K/uL Basophils # (Auto) 0.05 0.00-0.20 K/uL Absolute Immature Granulocyte (auto 0.07 0-1 K/uL Nucleated Red Blood Cells 0.0 0.0-0.19 % White Cell Morphology Comment See comments Chemistry Labs: Test 04/05/25 17:06 04/05/25 13:14 Range/Units Whole Blood Glucose 99 70-110 MG/DL Sodium Level 136 136-145 mmol/L Potassium Level 4.4 3.5-5.1 mmol/L Chloride Level 103 101-111 mmol/L Carbon Dioxide Level 28 21-32 mmol/L Blood Urea Nitrogen 14 7-18 mg/dL Creatinine 1.2 H 0.5-1.0 mg/dL Glomerular Filtration Rate Calc 45 >90 mL/min Random Glucose 110 H 70-105 mg/dL Total Calcium 8.8 8.5-10.1 mg/dL Total Bilirubin 0.6 0.2-1.0 mg/dL Direct Bilirubin 0.2 0.0-0.3 mg/dL Aspartate Amino Transf (AST/SGOT) 29 10-37 U/L Alanine Aminotransferase (ALT/SGPT) 34 12-78 U/L Alkaline Phosphatase 89 50-136 U/L Total Creatine Kinase 50 21-232 U/L Troponin I High Sensitivity 21 4-50 ng/L B-Type Natriuretic Peptide 1330 H 0-100 pg/mL Total Protein 6.9 6.0-8.3 g/dL Albumin 3.3 L 3.5-5.0 g/dL Lipase 47 16-77 U/L DIAGNOSTICS / RADIOLOGY RESULTS: CT ABDOMEN WITHOUT CONTRAST Clinical Information: constipation vs obstruction, dyspnea Comparison: CT Dose Index (CTDI): mGy Dose Length Product (DLP): total mGy-cm PROTOCOL: Routine noncontrast helical scanning of the abdomen was performed at 5mm collimation. Findings: No evidence of nephro or ureterolithiasis is found. No hydronephrosis or ureteral dilatation is seen. Bilateral small pleural effusions. Moderate pericardial effusion. Cardiomegaly. The stomach is unremarkable. It shows no wall thickening. No gross ulceration is seen. It is not overly distended. There are no surrounding inflammatory changes. No wall lesions are identified to suggest cancer. The spleen is unremarkable. It is not enlarged. The pancreas shows normal anatomy. It is not fatty replaced. It shows no lesions. The pancreatic duct is not dilated. The gallbladder is surgically absent. Atheromatous plaque of the aorta is seen. The adrenal glands are unremarkable. There is no enlargement. No lesions are noted. The liver is unremarkable. It shows no focal masses. The visualized segments of large and small bowel appear unremarkable. The bony and vascular structures are unremarkable for the patient's age. IMPRESSION: Bilateral small pleural effusions. Pericardial effusion. No acute abdominal pathology. This study was performed using dose reduction techniques to include automated exposure control and/or adjustment of the mA and/or kV according to patient size. PLAN NEURO: Minimize central acting medications as possible. Maintain fall precautions, adequate lighting during the day PULMONARY: Supplemental 02 as needed. Maintain aspiration precautions at all times CARDIOVASCULAR: Follow hemodynamics. Vital signs per facility protocol GI & NUTRITION: Continue with nutritional support. Continue stool softeners and laxatives as needed. KIDNEYS & ELECTROLYTES: Strict monitoring of intake, output and overall fluid balance. Avoid nephrotoxic medications to the extent possible. Medications to be dosed according to renal function. Monitor electrolytes and replace as needed ENDOCRINE: Maintain blood glucose between 100-180 at all times. Hypoglycemia protocol in place INFECTIOUS DISEASE: Trend temperature, WBC and procalcitonin level Follow cultures, deescalate antibiotics as soon as possible. Panculture if new onset fever ONCOLOGY/HEMATOLOGY/COAGULATION: Monitor for s/s of bleeding Monitor hemoglobin, coagulation studies as needed SKIN: Pressure ulcer prevention per facility protocol Specialty mattress ORTHO/REHAB: Continue PT/OT Prophylaxis: Continue GI and DVT prophylaxis Code Status: Full Resuscitation Disposition: TBD Other: Total patient care time exceeds 35 minutes excluding all procedures. Supervising physician: JANELLE Love COMPUTER NETWORK SPECIALIST April 05, 2025 18:36
[2025-04-05] MEDS ORDERED: APIX2.5T PO (18:55)
[2025-04-05] MEDS ORDERED: LINA145C PO (18:55)
[2025-04-05 19:07] LABS: SARS-CoV-2, RNA, NAAT NEGATIVE SARS CoV-2 (NEGATIVE)
[2025-04-05 19:12] LABS: INFLUENZA TYPE A Negative For Type A (NEGATIVE); INFLUENZA TYPE B Negative For Type B (NEGATIVE)
[2025-04-05 20:00] VITALS: BP 128/49; PULSE 69; RESP 20; TEMP 98.1
[2025-04-05] MEDS: cefTRIAXone 1G VIAL IVPB SCH (21:48)
[2025-04-05] MEDS: AZITHROMYCIN 250 MG TABLET PO SCH (21:48)
[2025-04-05 23:15] VITALS: BP 163/57; PULSE 77; RESP 20; TEMP 97.9
[2025-04-05 23:17] LABS: APPEARANCE,URINE CLEAR (CLEAR); BILIRUBIN,URINE NEGATIVE (NEGATIVE); COLOR,URINE COLORLESS (YELLOW); GLUCOSE, URINE (UA) NEGATIVE (NEGATIVE); KETONES,URINE NEGATIVE (NEGATIVE); LEUKOCYTE ESTERASE ,URINE NEGATIVE Leu/uL (NEGATIVE); NITRATE,URINE NEGATIVE (NEGATIVE); OCCULT BLOOD,URINE NEGATIVE (NEGATIVE); PROTEIN,URINE NEGATIVE (NEGATIVE); UROBILINOGEN,URINE 0.2 mg/dL (0.2-1.0)
[2025-04-05 23:18] LABS: ADD UA MICROSCOPIC YES; MUCUS,URINE RARE LPF (None Seen); RBC,URINE 0-1 /HPF (0-1); SQUAMOUS EPITHELIAL CELL,UR RARE /HPF (0-2)
[2025-04-06 03:21] VITALS: BP 122/48; PULSE 70; RESP 20; TEMP 98.1
[2025-04-06 05:37] LABS: BASOPHILS # (AUTO) 0.04 K/uL (0.00-0.20); BASOPHILS % (AUTO) 0.4 % (0.0-5.0); EOSINOPHILS # (AUTO) 0.27 K/uL (0.00-0.70); EOSINOPHILS % (AUTO) 2.4 % (0.0-8.0); HEMATOCRIT 36.8 % (36-48); IMMATURE GRANULOCYTE ABSOLUTE 0.08 K/uL (0-1); LYMPHOCYTES # (AUTO) 0.8 K/uL (1.0-4.8); LYMPHOCYTES % (AUTO) 7.2 % (21.0-51.0); MEAN CORPUSCULAR HGB CONC 32.3 g/dL (32.0-36.0); MEAN CORPUSCULAR VOLUME 86.6 fL (79-99); MONOCYTES # (AUTO) 0.7 K/uL (0.1-1.0); MONOCYTES % (AUTO) 6.2 % (3.0-13.0); NEUTROPHILS # (AUTO) 9.4 K/uL (1.8-7.7); NEUTROPHILS % (AUTO) 83.1 % (40.0-77.0); PLATELET COUNT (AUTO) 227 K/uL (130-400); RED BLOOD CELL COUNT(AUTO) 4.25 MIL/uL (4.00-5.50); RED CELL DISTRIBUTION WIDTH 14.9 % (11.0-15.5); WHITE BLOOD COUNT (AUTO) 11.3 K/uL (4.8-10.8)
[2025-04-06 06:01] LABS: B-TYPE NATRIURETIC PEPTIDE 1160 pg/mL (0-100)
[2025-04-06 08:00] VITALS: O2SAT 96
[2025-04-06 08:01] VITALS: BP 133/53; PULSE 70; RESP 18; TEMP 97.5
--- NOTE | 2025-04-06 09:24 | PN ---
[facility] PROGRESS NOTE Date Patient Seen: April 06, 2025 Time of Visit: 10:24 Supervising Physician: [ ] Primary Care Physician: Dr. Bales Outpatient Specialists: Dr. Isaac Inpatient Consults: [ ] PROBLEM LIST: Acute hypoxic respiratory failure, POA CHF in acute exacerbation, per last echo 06/2024, EF of 25-30%, grade 2 diastolic dysfunction, and severe global hypokinesis POA Acute kidney injury, POA Leukocytosis, POA DM type 2, POA Hyperlipidemia, POA History of pacemaker/AICD placement PLAN: Admit to medical-surgical floor VS per unit protocol Keep systolic blood pressure less than 160 P.r.n. hydralazine and labetalol Continue Lasix IV for now DuoNeb q.6 as needed for shortness of breaths Strict I&O Keep head of bed above 30 O2 therapy as needed Incentive spirometry We will start patient on empiric antibiotic given leukocytosis with moderate cough Bilateral SCDs CBC, CMP, magnesium level daily INTERVAL HISTORY: [ ] REVIEW OF SYSTEMS: 12 point ROS reviewed with patient. Pertinent positives mentioned above. Otherwise negative. PHYSICAL EXAM: GENERAL: alert, weak, awake oriented x 3 HEENT: EOMI, Sclera non icteric, moist mucosa NECK: Supple, no JVD, trachea midline LUNGS: Clear breath sounds bilaterally. No wheezes HEART: Regular rate and rhythm. Normal S1 and S2, without murmurs ABD: Abdomen soft, nontender. Bowel sounds present EXT: No clubbing cyanosis or edema NEURO: Alert and oriented to person, follows commands Vital Signs (last 8hr) Date Time Temp Pulse Resp B/P (MAP) Pulse Ox O2 Delivery O2 Flow Rate FiO2 04/06/25 08:01 97.5 70 18 133/53 96 Room Air 04/06/25 03:21 98.1 70 20 122/48 95 Room Air LABS: Hematology Labs: Test 04/06/25 04:35 04/05/25 13:14 Range/Units White Blood Count 11.3 H 4.8-10.8 K/uL Red Blood Count 4.25 4.00-5.50 MIL/uL Hemoglobin 11.9 L 12.0-16.0 g/dL Hematocrit 36.8 36-48 % Mean Corpuscular Volume 86.6 79-99 fL Mean Corpuscular Hemoglobin 28.0 27.0-33.0 pg Mean Corpuscular Hemoglobin Concent 32.3 32.0-36.0 g/dL Red Cell Distribution Width 14.9 11.0-15.5 % Platelet Count 227 130-400 K/uL Mean Platelet Volume 10.1 7.5-10.5 fL Immature Granulocyte % (Auto) 0.7 0-1 % Neutrophils (%) (Auto) 83.1 H 40.0-77.0 % Lymphocytes (%) (Auto) 7.2 L 21.0-51.0 % Monocytes (%) (Auto) 6.2 3.0-13.0 % Eosinophils (%) (Auto) 2.4 0.0-8.0 % Basophils (%) (Auto) 0.4 0.0-5.0 % Neutrophils # (Auto) 9.4 H 1.8-7.7 K/uL Lymphocytes # (Auto) 0.8 L 1.0-4.8 K/uL Monocytes # (Auto) 0.7 0.1-1.0 K/uL Eosinophils # (Auto) 0.27 0.00-0.70 K/uL Basophils # (Auto) 0.04 0.00-0.20 K/uL Absolute Immature Granulocyte (auto 0.08 0-1 K/uL Nucleated Red Blood Cells 0.0 0.0-0.19 % White Cell Morphology Comment See comments Chemistry Labs: Test 04/06/25 05:10 04/06/25 04:35 04/06/25 02:44 04/05/25 19:02 Range/Units Whole Blood Glucose 90 70-110 MG/DL Magnesium Level 1.90 1.80-2.40 mg/dL B-Type Natriuretic Peptide 1160 H 0-100 pg/mL Bedside Glucose Comment Notified Nurse Lactic Acid Level 1.6 0.8-2.5 mmol/L Procalcitonin < 0.05 L 0.05-0.5 ng/mL Test 04/05/25 13:14 Range/Units Sodium Level 136 136-145 mmol/L Potassium Level 4.4 3.5-5.1 mmol/L Chloride Level 103 101-111 mmol/L Carbon Dioxide Level 28 21-32 mmol/L Blood Urea Nitrogen 14 7-18 mg/dL Creatinine 1.2 H 0.5-1.0 mg/dL Glomerular Filtration Rate Calc 45 >90 mL/min Random Glucose 110 H 70-105 mg/dL Total Calcium 8.8 8.5-10.1 mg/dL Total Bilirubin 0.6 0.2-1.0 mg/dL Direct Bilirubin 0.2 0.0-0.3 mg/dL Aspartate Amino Transf (AST/SGOT) 29 10-37 U/L Alanine Aminotransferase (ALT/SGPT) 34 12-78 U/L Alkaline Phosphatase 89 50-136 U/L Total Creatine Kinase 50 21-232 U/L Troponin I High Sensitivity 21 4-50 ng/L Total Protein 6.9 6.0-8.3 g/dL Albumin 3.3 L 3.5-5.0 g/dL Lipase 47 16-77 U/L DIAGNOSTICS / RADIOLOGY RESULTS: [ ] PLAN NEURO: Minimize central acting medications as possible. Maintain fall precautions, adequate lighting during the day PULMONARY: Supplemental 02 as needed. Maintain aspiration precautions at all times CARDIOVASCULAR: Follow hemodynamics. Vital signs per facility protocol GI & NUTRITION: Continue with nutritional support. Continue stool softeners and laxatives as needed. KIDNEYS & ELECTROLYTES: Strict monitoring of intake, output and overall fluid balance. Avoid nephrotoxic medications to the extent possible. Medications to be dosed according to renal function. Monitor electrolytes and replace as needed ENDOCRINE: Maintain blood glucose between 100-180 at all times. Hypoglycemia protocol in place INFECTIOUS DISEASE: Trend temperature, WBC and procalcitonin level Follow cultures, deescalate antibiotics as soon as possible. Panculture if new onset fever ONCOLOGY/HEMATOLOGY/COAGULATION: Monitor for s/s of bleeding Monitor hemoglobin, coagulation studies as needed SKIN: Pressure ulcer prevention per facility protocol Specialty mattress ORTHO/REHAB: Continue PT/OT Prophylaxis: Continue GI and DVT prophylaxis Code Status: Full Resuscitation Disposition: TBD Other: Total patient care time exceeds 35 minutes excluding all procedures. CAPRI FRANK April 06, 2025 09:24
--- NOTE | 2025-04-06 09:36 | HMCIMG ---
Exam Type: CHEST 1VW Clinical Information: CHF exacerbation Comparison: None Findings: The lungs are clear of infiltrates. The heart is enlarged in size. The bony and soft tissue structures of the chest are unremarkable. Left cardiac pacemaker is noted with leads in place. Impression: Clear lungs.
[2025-04-06 11:42] VITALS: BP 120/54; PULSE 71; RESP 19; TEMP 97.9
--- NOTE | 2025-04-06 13:01 | NUR ---
Discharge Planning: Pt. states she lives with her . Contact number is for her daughter Nichole Mata at . PCP is Yong Lovett, and preferred pharmacy is [facility] in [place], Pt. states she is independent with all ADL's. No home health, provider services, or DME. DCP is for home. No d/c needs at this time.
--- NOTE | 2025-04-06 14:58 | DS ---
[facility] DISCHARGE SUMMARY Date Patient Seen: April 06, 2025 Time of Visit: 14:58 Supervising Physician: [Dr. Christy] Primary Care Physician: Dr. Bales Outpatient Specialists: Dr. Isaac Inpatient Consults: [ ] PROBLEM LIST: Acute on chronic combined heart failure, per last echo 06/2024, EF of 25-30%, POA Acute kidney injury, POA Leukocytosis, POA DM type 2, POA Hyperlipidemia, POA History of pacemaker/AICD placement Non-compliance with medical treatment PLAN: Stress compliance with medical treatment for heart failure HOSPITAL COURSE: HPI (per admitting provider) 80-year-old female with past medical history of congestive heart failure with estimated EF of 25-30%, status post pacemaker/AICD placement, hypertension, DM type 2, hyperlipidemia who presented to ED via private vehicle with complaint of shortness of breaths that started around midnight and found to have CHF in acute exacerbation, and acute hypoxic respiratory failure. Patient was seen and examined in ED with no relatives present at bedside. According to her she started to have symptoms of shortness of breaths around 12 midnight, worse with laying flat. There is also associated [id number] cough but denies any fever or back pain. Patient was then brought in by family for further medical evaluation. In ED stat chest x-ray was done and findings consistent with vascular congestion, CT of the abdomen was also done and showed bilateral pleural effusion. Initial CBC showed [place] [address], hemoglobin of 11.5, and hematocrit of 36. Her chemistry is significant for creatinine level of 1.2, BNP of 1330, with troponin level of 21. In ED patient was initiated on O2 therapy and was given IV dose of Lasix. At present patient is currently hemodynamically stable, on room air with appropriate oxygen saturation, not in acute respiratory distress. Patient denies any headache, chest pain, shortness of breath, fever, cough, abdominal pain, diarrhea, flu-like symptoms. Patient was previously vaccinated with COVID, and her flu shot is up-to-date. Denies any alcohol, smoking, or illicit drug use. 04/06 patient is evaluated. She is comfortable, lying in bed, in no acute respiratory distress. Saturating well on room air. at bedside states patient was noncompliant with her Lasix at home. Laboratory findings and imaging studies reviewed with patient. She does have trace bilateral pleural effusions and small pericardial effusion not requiring invasive intervention. She was advised to continue with medical management outpatient. States was started on SGLT2 but does not have her medication with her. 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 I stressed the importance of compliance with her medication given her advanced heart failure, she and verbalized understanding. The patient was treated for the following problems: ACTIVE PROBLEM LIST FOR THE HOSPITALIZATION: CHRONIC PROBLEMS: continue previous management per PCP unless otherwise indicated TRUCK MANAGER FINDINGS/RECOMMENDATIONS: [ ] PROCEDURES: as mentioned above DISCHARGE MEDICATIONS: Pt hemodynamically stable and afebrile at time of discharge. PCP notified of patients admission, hospital course and discharge. Continued Medications: Amiodarone HCl (Amiodarone HCl) 200 Mg Tablet 200 MG PO DAILY, TAB Apixaban (Eliquis) 2.5 Mg Tablet 2.5 MG PO BID, TAB Aspirin (Aspirin EC) 81 Mg Tablet.dr 81 MG PO DAILY, TAB Carvedilol (Carvedilol) 25 Mg Tablet 25 MG PO BID, TAB Furosemide (Furosemide) 20 Mg Tablet 1 TAB PO DAILY Glipizide (Glipizide) 5 Mg Tablet 5 MG PO BID, TAB Linaclotide (Linzess) 145 Mcg Capsule 72 MCG PO DAILY, CAP Losartan Potassium (Losartan Potassium) 50 Mg Tablet 50 MG PO HS, TAB Pantoprazole Sodium (Pantoprazole Sodium) 40 Mg Tablet.dr 40 MG PO DAILY, TAB Simvastatin (Simvastatin) 10 Mg Tablet 10 MG PO HS, TAB PHYSICAL EXAM: GENERAL: alert, weak, awake oriented x 3 HEENT: EOMI, Sclera non icteric, moist mucosa NECK: Supple, no JVD, trachea midline LUNGS: Clear breath sounds bilaterally. No wheezes HEART: Regular rate and rhythm. Normal S1 and S2, without murmurs ABD: Abdomen soft, nontender. Bowel sounds present EXT: No clubbing cyanosis or edema NEURO: Alert and oriented to person, follows commands FOLLOW-UP: Continue medications as previously prescribed. Follow up wiht PCP in 2-3 days for reevaluation and further management. Stressed compliance with medication to reduce exacerbation, verbalized understanding. RECOMMENDATIONS: See Discharge Instructions This case was seen and discussed with my supervising physician. More than 30 minutes spent on discharge process, including evaluation of the patient, discussion with nursing staff, medication reconciliation and follow-up appoint CAPRI Sharpe April 06, 2025 14:58
[2025-04-06 15:58] VITALS: BP 134/50; PULSE 71; RESP 20; TEMP 99.2
--- NOTE | 2025-04-06 16:40 | NUR ---
DISCHARGE PERIPHERAL IV DISCONTINUED DISCHARGE INFORMATION AND EDUCATION PROVIDED TO PATIENT PATIENT AWARE OF FOLLOW UP APPOINTMENT WITH DR. WATERS 04/14/25 AT 0815 A.M. PATIENT AWARE TO CONTINUE WITH HOME MEDICATIONS ALL QUESTIONS ANSWERED.
== END 2025-04-06 16:40 | disposition home or self-care (01) ==
LOC: EDH 12:48 → INTOOBSV 14:28 → EDHIP 14:28 → 3AH 22:36
PROVIDERS: ADMIT Internal Medicine Critical Care Medicine; ATTEND Internal Medicine Critical Care Medicine
DX: J96.01 Acute respiratory failure with hypoxia (principal); Z20.822 Contact with and (suspected) exposure to COVID-19; I11.0 Hypertensive heart disease with heart failure; I50.43 Acute on chronic combined systolic (congestive) and diastolic (congestive) heart failure; N17.9 Acute kidney failure, unspecified; D72.829 Elevated white blood cell count, unspecified; E87.70 Fluid overload, unspecified; E11.9 Type 2 diabetes mellitus without complications; E78.5 Hyperlipidemia, unspecified; E78.00 Pure hypercholesterolemia, unspecified; K59.00 Constipation, unspecified; Z91.148 Patient's other noncompliance with medication regimen for other reason; Z95.810 Presence of automatic (implantable) cardiac defibrillator; Z79.899 Other long term (current) drug therapy
CPT/HCPCS: 96365; 99285; 82550; 80076; 84484; 80048; 83880 ×2; 83690; 85025 ×2; 87804 ×2; 82948 ×6; 83605; 81001; 36415 ×2; 87635; 71045 ×2; 74176; 93005; 84145; 96376; 96375; 83735; J0696; J1938 ×3; G0378 ×3

== ENCOUNTER → 2025-05-27 | Outpatient (CLI) | payer OTHER ==
[~2025-05-27] MED LIST changes: -AMIO200T68 PO; +AMIO200T73 PO; +APIX2.5T PO; -APIX5TAB PO; +LINA145C PO
== END | disposition home or self-care (01) ==
LOC: RAH 13:43
PROVIDERS: ATTEND Family Medicine
DX: G31.9 Degenerative disease of nervous system, unspecified (principal); R26.9 Unspecified abnormalities of gait and mobility

== ENCOUNTER 2025-08-06 10:05 | Emergency (ER) | payer OTHER ==
[~2025-08-06] VITALS: Ht 154.9 cm; Wt 58.1 kg
[2025-08-06 10:09] VITALS: TEMP 97.8
--- NOTE | 2025-08-06 10:20 | NUR ---
PT REFUSED C COLLAR, PT STATES THAT C COLLAR IS MAKING IT HARD FOR HER TO BREATH AND CAUSING ANXIETY. C COLLAR REMOVED AND ED PROVIDER MADE AWARE.
--- NOTE | 2025-08-06 10:58 | HMCIMG ---
Exam: NONCONTRAST CT BRAIN REASON: fall. COMPARISON: None. TECHNIQUE: Images are obtained from vertex to the skull base. The exam was performed without IV contrast. FINDINGS: There is normal appearing brain parenchyma. There are no focal mass lesions. There is is no evidence of intracranial hemorrhage or acute stroke. Ventricles and sulci appear normal. Posterior fossa and brainstem structures are unremarkable. Paranasal sinuses and remaining extracranial soft tissues appear normal as well.There is global atrophy with periventricular ischemic white matter changes. IMPRESSION: 1. No acute intracranial process CT was performed with one or more following dose reduction techniques: automated exposure control, adjustment of the mA and kv according to patient's size, or use of a iterative reconstruction technique.
--- NOTE | 2025-08-06 11:09 | HMCIMG ---
Exam: CERVICAL SPINE 2 VIEWS REASON: fall TECHNIQUE: 4 views were obtained. FINDINGS: There are normal appearing vertebral bodies. There are prominent ventral marginal spur seen at C5-C6 C6-C7 and C7-T1. Interspace heights are well preserved. There are no visible fractures. Soft tissues appear unremarkable. IMPRESSION: 1. Osteoarthritic changes with prominent ventral marginal spur seen in the lower cervical spine from C5 to T1. 2. No acute fracture or malalignment 3. Hypolordosis cervical spine suggesting muscle spasm..
--- NOTE | 2025-08-06 11:17 | ERN ---
General Chief Complaint: Mechanical Fall Stated Complaint: FALL Time Seen by MD: 10:12 Source: patient History of Present Illness Initial Comments Is a an 80-year-old female coming in after she had a fall yesterday. Per patient she slipped back hit herself in the occipital area of her head. She states she did lose consciousness. Allergies: Coded Allergies: nitrofurantoin (Unverified Allergy, Unknown, 04/07/18) sacubitril (Unverified Allergy, Unknown, 01/01/25) sulfamethoxazole (Verified Allergy, Unknown, 04/07/18) trimethoprim (Verified Allergy, Unknown, 04/07/18) valsartan (Unverified Allergy, Unknown, 01/01/25) Home Meds Reported Medications Linaclotide (Linzess) 145 Mcg Capsule, 72 MCG PO DAILY, CAP 04/05/25 Apixaban (Eliquis) 2.5 Mg Tablet, 2.5 MG PO BID, TAB 04/05/25 Simvastatin (Simvastatin) 10 Mg Tablet, 10 MG PO HS, TAB 01/01/25 Aspirin (Aspirin EC) 81 Mg Tablet.dr, 81 MG PO DAILY, TAB 01/01/25 Pantoprazole Sodium (Pantoprazole Sodium) 40 Mg Tablet.dr, 40 MG PO DAILY, TAB 01/01/25 Amiodarone HCl (Amiodarone HCl) 200 Mg Tablet, 200 MG PO DAILY, TAB 01/01/25 Losartan Potassium (Losartan Potassium) 50 Mg Tablet, 50 MG PO HS, TAB 03/27/24 Glipizide (Glipizide) 5 Mg Tablet, 5 MG PO BID, TAB 03/27/24 Furosemide (Furosemide) 20 Mg Tablet, 1 TAB PO DAILY 03/30/23 Carvedilol (Carvedilol) 25 Mg Tablet, 25 MG PO BID, TAB 04/02/16 Past Medical History Past Medical History: Diabetes-Type II, High Cholesterol, Hypertension Medical History Other: 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 Social History Social History: Negative, Lives with family Female( History) History: Not Applicable ROS Dictation CONSTITUTIONAL: No chills, no fever, no weakness, no diaphoresis, no malaise. HEAD/FACE: No signs of trauma. EENT: No eye pain, no blurred vision, no tearing, no double vision, no ear pain, no ear discharge, no nose pain, no nasal congestion, no throat pain, no throat swelling, no mouth pain. RESPIRATORY: No cough, no orthopnea, no SOB, no stridor, no wheezing. CARDIOVASCULAR: No chest pain, no edema, no palpitations, no syncope. GASTROINTESTINAL/ABDOMINAL: No abdominal pain, no constipation, no diarrhea, no nausea, no vomiting. GENITOURINARY: No abnormal discharge, no dysuria, no frequent urination, no hematuria. No complaints of pain in the genitals. MUSCULOSKELETAL: No back pain, no gout, no joint pain, no joint swelling, no muscle pain, no muscle stiffness, no neck pain. INTEGUMENTARY: No change in color, no change in hair/nails, no dryness, no lesion, no lumps, no rash. NEUROLOGICAL/PSYCH: No anxiety, not depressed, no emotional problem, no headache, no numbness, no pre-existing deficit, no history of seizures, no tremors, no weakness. HEMATOLOGIC/LYMPHATIC: Not anemic, no history of blood clots, no apparent bl eeding, no bruising, glands not swollen. All Systems Negative, Except as Noted. Physical Exam Physical Exam Dictation VITAL SIGNS: Reviewed. GENERAL APPEARANCE: Alert, oriented x3, no acute distress, obese. HEAD AND FACE: Non-traumatic. EYES: PERRL, pink conjunctivas, eyelid no trauma, anterior chamber clear. EARS: Pinnas intact and no signs of trauma or erythema. Ear canals clear and no discharge. TMs no erythema. NOSE: No discharge, no bleeding. OROPHARYNX: Mouth normal, teeth no caries, tongue pink. Pharynx clear, no erythema. Tonsils no exudates, no abscesses noted. Mucous membrane moist. NECK: Supple, non-tender, no thyromegaly, no masses, no JVD, no bruits. BREAST: Deferred. CHEST: No tenderness, no crepitus, no paradoxical movement, no retractions. LUNGS: Clear, well-ventilated, symmetric, no rales, no wheezing, no rhonchi, no stridor, good breath sounds bilaterally. HEART: Regular rate, regular rhythm, no murmur, no gallops. VASCULAR: No peripheral edema. ABDOMEN: Soft, positive bowel sounds, nondistended, no guarding, nontender, no rebound, no masses no hepatomegaly, no splenomegaly, no Lui's sign, no hernias. RECTAL: Deferred. GENITAL: Deferred. NEUROLOGICAL: Normal speech, gross motor function intact, gross sensory function intact. MUSCULOSKELETAL: Neck nontender, full range of motion, back nontender, full ran ge of motion. EXTREMITIES: Nontender, full range of motion. SKIN: Color pink, dry, no turgor, no rash, no lacerations, no abrasions, no contusions. LYMPHATICS: Deferred. Results Laboratory and Microbiology Labs Reviewed?: Yes EKG/XRAY/US/CT/MRI X-RAY Comment IMAGING REPORT Signed PATIENT: JENNIFER SOSA MR#: [id number] : 1945 SEX: F AGE: 80 LOCATION: [facility] ORDER 101 STATUS: [facility] REPORT#: [id number] SERVICE 1018 REASON: fall ORDERING PHYSICIAN: AMAYA ZHANG MD PROCEDURE: CERV 2 3VW - CERV SPINE 2-3VWS Exam: CERVICAL SPINE 2 VIEWS REASON: fall TECHNIQUE: 4 views were obtained. FINDINGS: There are normal appearing vertebral bodies. There are prominent ventral marginal spur seen at C5-C6 C6-C7 and C7-T1. Interspace heights are well preserved. There are no visible fractures. Soft tissues appear unremarkable. IMPRESSION: 1. Osteoarthritic changes with prominent ventral marginal spur seen in the lower cervical spine from C5 to T1. 2. No acute fracture or malalignment 3. Hypolordosis cervical spine suggesting muscle spasm.. DICTATED BY: PANCHITO HOLLAND MD DATE: 08/06/251105 ELECTRONICALLY SIGNED BY: PANCHITO HOLLAND MD DATE: 08/06/251108 CT Scan Comment [address] [address] IMAGING REPORT Signed PATIENT: JENNIFER SOSA MR#: [id number] : 1945 SEX: F AGE: 80 LOCATION: ED ORDER 1019 STATUS: REG ER REPORT#: [id number] SERVICE 1018 REASON: fall ORDERING PHYSICIAN: AMAYA ZHANG MD PROCEDURE: HEAD WO - CT HEAD/BRAIN W/O CONTRAST Exam: NONCONTRAST CT BRAIN REASON: fall. COMPARISON: None. TECHNIQUE: Images are obtained from vertex to the skull base. The exam was performed without IV contrast. FINDINGS: There is normal appearing brain parenchyma. There are no focal mass lesions. There is is no evidence of intracranial hemorrhage or acute stroke. Ventricles and sulci appear normal. Posterior fossa and brainstem structures are unremarkable. Paranasal sinuses and remaining extracranial soft tissues appear normal as well.There is global atrophy with periventricular ischemic white matter changes. IMPRESSION: 1. No acute intracranial process CT was performed with one or more following dose reduction techniques: automated exposure control, adjustment of the mA and kv according to patient's size, or use of a iterative reconstruction technique. DICTATED BY: PANCHITO HOLLAND MD DATE: 08/06/25 105 ELECTRONICALLY SIGNED BY: PANCHITO HOLLAND MD DATE: 08/06/25 105 MDM MDM: Differential diagnosis: Fall, head injury, Rationale: Tests considered and ordered secondary to shared decision making include: Previous outside records reviewed: Old ER visits. Risk of complication and/or morbidity or mortality of patient management: None Medications-Per medication reconciliation Need for hospitalization: Patient does not meet criteria for hospitalization. Need for emergency major/minor surgery: No In his is a an 80-year-old female coming in complaining of a fall. Imaging studies negative for acute findings. Patient will be discharged in stable condition. Did advised her appropriate follow up with PCP for ongoing evaluation and management. ED Course Orders Procedure Category Date Status Time Ct Head/Brain W/O CT 08/06/25 Resulted Contrast 10:18 Cerv Spine 2-3vws RAD 08/06/25 Resulted 10:18 Vital Signs Date Time Temp Pulse Resp B/P (MAP) Pulse Ox O2 Delivery O2 Flow Rate FiO2 08/06/25 10:09 97.9 70 16 132/76 97 Room Air DX & DISP Disposition: Discharge Departure Impression: Primary Impression: Fall Additional Impression: Head injury Condition: Stable Additional Instructions: FOLLOW-UP WITH PRIMARY CARE PROVIDER IN 1 TO 2 DAYS. TAKE MEDICATIONS DIRECTED HERE IN THE EMERGENCY ROOM. OKAY TO CONTINUE HOME MEDICATIONS UNLESS OTHERWISE DISCUSSED DURING YOUR VISIT IN THE EMERGENCY ROOM TODAY. RETURN TO YOUR NEAREST EMERGENCY ROOM IF SYMPTOMS WORSEN OR IF THERE IS NO IMPROVEMENT. CALL 911 IF YOU NEED IMMEDIATE ASSISTANCE. TAKE TYLENOL [id number] NEEDED AND IF NO CONTRAINDICATIONS ARE PRESENT. INCREASE ORAL HYDRATION. A WOUND CULTURE OR URINE CULTURE WAS ORDERED HERE IN THE EMERGENCY ROOM DEPARTMENT PLEASE FOLLOW-UP WITH PRIMARY CARE PROVIDER AND ADVISE THEM TO GET REPORTS FROM OUR FACILITY. IF YOU HAD ANY WIL WRAP/SPLINTS THAT WERE APPLIED HERE, PLEASE DO NOT REMOVE THEM UNTIL YOU SEE YOUR PRIMARY CARE OR SPECIALTY. Referrals: Referrals: NOHEMI WATERS MD (PCP) Time of Disposition: 11:25 AMAYA ZHANG MD Aug 06, 2025 11:17
[2025-08-06] MEDS ORDERED: ACET-66 PO (11:30)
[2025-08-06 11:52] VITALS: BP 129/57; PULSE 71; RESP 20; O2SAT 99
== END 2025-08-06 12:09 | disposition home or self-care (01) ==
LOC: EDH 10:05
DX: S09.90XA Unspecified injury of head, initial encounter (principal); E11.9 Type 2 diabetes mellitus without complications; E78.00 Pure hypercholesterolemia, unspecified; I10 Essential (primary) hypertension; Z79.01 Long term (current) use of anticoagulants; Z79.82 Long term (current) use of aspirin; Z79.84 Long term (current) use of oral hypoglycemic drugs; Z79.899 Other long term (current) drug therapy; Z88.1 Allergy status to other antibiotic agents; Z88.2 Allergy status to sulfonamides; Z95.810 Presence of automatic (implantable) cardiac defibrillator; W01.0XXA Fall on same level from slipping, tripping and stumbling without subsequent striking against object, initial encounter; Y93.89 Activity, other specified; Y92.89 Other specified places as the place of occurrence of the external cause; Y99.8 Other external cause status
CPT/HCPCS: 70450; 72040; 99284